=== PATIENT | female | born 1990 | race African-American/Black ===

== ENCOUNTER 2022-03-06 21:08 | Emergency (ER) | payer MEDICAID ==
[~2022-03-06] VITALS: Ht 167.6 cm; Wt 91.0 kg
[~2022-03-06 21:08] MED LIST: AMOXICILLIN; KEFLEX; SULFATRIM
[2022-03-07] MEDS ORDERED: ACETAMINOPHEN WITH CODEINE 300/30MG TABLET PO ONE (00:15)
[2022-03-07] MEDS ORDERED: IBUP-2030 MT (00:27)
[2022-03-07] MEDS ORDERED: T3 PO ×2 (00:27)
[2022-03-07 00:58] VITALS: BP 126/65
== END 2022-03-07 01:00 | disposition home or self-care (01) ==
LOC: ER 21:08
DX: N94.6 Dysmenorrhea, unspecified (principal)
CPT/HCPCS: 99282

== ENCOUNTER 2022-03-17 11:46 | Emergency (ER) | payer MEDICAID ==
[~2022-03-17] VITALS: Ht 167.6 cm; Wt 82.0 kg
[~2022-03-17 11:46] MED LIST changes: +IBUP-2030 MT; +T3 PO
[2022-03-17 17:00] VITALS: BP 128/76
== END 2022-03-17 17:00 | disposition home or self-care (01) ==
LOC: ER 13:57
DX: N94.6 Dysmenorrhea, unspecified (principal); Z79.899 Other long term (current) drug therapy
CPT/HCPCS: 99281